=== PATIENT | male | born 2005 | race Caucasian/White ===

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

== ENCOUNTER 2023-01-03 00:34 | Emergency (ER) | payer OTHER ==
[~2023-01-03] VITALS: Ht 172.7 cm; Wt 93.0 kg
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
[2023-01-03 01:21] VITALS: BP 119/68
--- NOTE | 2023-01-03 01:21 | NUR ---
OKAY FOR DISCHARGE HOME WITH FAMILY, MD AT BEDSIDE.
== END 2023-01-03 01:22 | disposition home or self-care (01) ==
LOC: ER 00:34
DX: S16.1XXA Strain of muscle, fascia and tendon at neck level, initial encounter (principal); M54.50 Low back pain, unspecified; V89.2XXA Person injured in unspecified motor-vehicle accident, traffic, initial encounter; Y93.89 Activity, other specified; Y92.89 Other specified places as the place of occurrence of the external cause; Y99.8 Other external cause status
CPT/HCPCS: A4663

== ENCOUNTER 2023-10-24 17:27 | Emergency (ER) | payer OTHER ==
[~2023-10-24] VITALS: Ht 172.7 cm; Wt 98.0 kg
[2023-10-24] MEDS ORDERED: ENAL20TA18 PO (18:45)
[2023-10-24] MEDS ORDERED: CHOL400T28 PO (18:45)
[2023-10-24] MEDS ORDERED: ACETAMINOPHEN ES 500 MG TABLET PO ONE (19:00)
[2023-10-24] MEDS ORDERED: ACETAMINOPHEN ES 500 MG TABLET ONE (19:16)
[2023-10-24] MEDS ORDERED: NAPR500T6 PO (20:42)
[2023-10-24 20:49] VITALS: BP 124/69; O2SAT 99
== END 2023-10-24 20:50 | disposition home or self-care (01) ==
LOC: ER 17:30
DX: S92.421A Displaced fracture of distal phalanx of right great toe, initial encounter for closed fracture (principal); S86.011A Strain of right Achilles tendon, initial encounter; N18.9 Chronic kidney disease, unspecified; Z79.899 Other long term (current) drug therapy; W20.8XXA Other cause of strike by thrown, projected or falling object, initial encounter; Y93.89 Activity, other specified; Y92.89 Other specified places as the place of occurrence of the external cause; Y99.8 Other external cause status
CPT/HCPCS: 73660; A4606; A4663; A9150